=== PATIENT | female | born 1945 | race Caucasian/White ===

== ENCOUNTER → 2017-05-29 | Outpatient (CLI) | payer OTHER ==
[~2017-05-29] VITALS: Ht 154.9 cm; Wt 68.0 kg
[~2017-05-29] MED LIST: AMBIEN 5 MG TABL5 M1 PO; APAP650 PO; ASPIRIN81 M2 PO; ATORVASTATIN CA40 MG PO; CELLCEPT500 MG PO; COLACE100 MG PO; FLUTICASONE PRO16 GM NS; GLUCOTROL5 MG PO; MUPIROCIN22 GM TOP; NEURONTIN600 MG PO; NIFEDIPINE ER60 M1 PO; RESTASIS1 EACH OPHTHALMIC; ROBAXIN 750 MG750 M1 PO; TRAZODONE 150150 M1 PO; ZANTAC 150MG T150 MG PO
[2017-05-29 09:41] VITALS: BP 149/85
== END | disposition home or self-care (01) ==
LOC: PAIN 07:22
DX: M17.11 Unilateral primary osteoarthritis, right knee (principal); M47.27 Other spondylosis with radiculopathy, lumbosacral region; G89.29 Other chronic pain; I10 Essential (primary) hypertension; E11.9 Type 2 diabetes mellitus without complications; F32.89 Other specified depressive episodes; Z90.710 Acquired absence of both cervix and uterus; Z98.890 Other specified postprocedural states; Z79.82 Long term (current) use of aspirin; Z88.2 Allergy status to sulfonamides; Z88.8 Allergy status to other drugs, medicaments and biological substances; Z90.49 Acquired absence of other specified parts of digestive tract; Z79.899 Other long term (current) drug therapy

== ENCOUNTER → 2017-11-26 | Outpatient (CLI) | payer OTHER ==
[~2017-11-26] VITALS: Ht 157.5 cm; Wt 72.3 kg
[~2017-11-26] MED LIST changes: +CRESTOR10 MG PO; +HYDROCODON-ACE1 EAC8 PO; +PREDNISONE 5 MG5 M1 PO; +TRAMADOL 50 MG50 MG PO; +ZETIA10 MG PO
--- NOTE | ~2017-11-26 | HPC ---
[facility] [place] [address] PAIN MANAGEMENT CONSULTATION Name: RAMAN TRAN [facility] [id number] Admission: 11/26/17 Attend Phys: Gómez Baig DO Discharge: Date of : 49 Report #: [id number] THIS REPORT FOR: //name// CC: Gómez Leal DO DATE OF SERVICE: 11/26/2017 REFERRING PHYSICIAN: Ted Leal D.O. CHIEF COMPLAINT: Right knee pain. HISTORY OF PRESENT ILLNESS: As you know, the patient is a very pleasant 72-year-old female who returns today in followup visit having received a first in a series of Synvisc injections. Unfortunately, she received zero improvement in symptoms with the injection. She returns for possible repeat injection but also discussed other treatment options as the injection provided at last visit gave no improvement in symptoms. She had no complications with the procedure but had no improvement in overall pain. She is placing pain score today 2/10; exacerbated with walking, standing and lying down; improves with medications and repositioning. ALLERGIES: SULFA, CAFFEINE, GUAIFENESIN, NAPROXEN, CLINDAMYCIN, ADHESIVE TAPE and ERGOTAMINE. CURRENT MEDICATIONS: Nifedipine, glipizide, zolpidem, gabapentin, methocarbamol, ranitidine, trazodone, mycophenolate, fluticasone, cyclosporine, acetaminophen, lovastatin and prednisone. SOCIAL HISTORY: The patient denies tobacco, alcohol, IV or illicit drug use. She is retired and retired years ago. She is accompanied by her present in room today. IMAGING DATA: No new imaging available. PHYSICAL EXAMINATION: VITAL SIGNS: Blood pressure 127/66, pulse 76 and respiratory rate 16 and unlabored. The patient is 98% on room air. Height 5 feet 2 inches tall, weight 159.4 pounds and BMI calculated 29.1. GENERAL: Well-developed, well-nourished and well-hydrated 72-year-old female appearing stated age, pain is rated around 3/10. HEENT: Normocephalic and atraumatic. Pupils equal, round and reactive to light. EXTREMITIES: Show no clubbing, no cyanosis and no edema. MUSCULOSKELETAL: Active and passive range of motion, right knee is met with [facility] [address] [place] [address] PAIN MANAGEMENT CONSULTATION Name: RAMAN TRAN Room #: [facility]#: [id number] Admission: 11/26/17 Attend Phys: Gómez Baig DO Discharge: Date of : 49 Report #: [id number] increasing pain. This standing from seated position exacerbates knee pain as does ambulation. Drawer tests, both anterior and posterior negative. Lateral collateral and medial collateral ligaments appear to be intact. ASSESSMENT: 1. Right knee osteoarthritis. 2. Chronic right knee pain. 3. Chronic intractable pain. PLAN: 1. The patient returns today in followup visit where we discussed the lack of efficacy with the Synvisc injection. I would not recommend moving forward with further Synvisc injections given the 0% improvement in overall pain with the injection provided at last visit. I would recommend a more formalized evaluation through orthopedics and initiation of pain medication to help for pain control while we await the orthopedic eval. The patient was amenable. 2. The patient was given a referral to Orthopedic Surgery, review of symptoms and to discuss options for treatment for osteoarthritis of the right knee, progressively worsening. The patient was given a referral to initiate the consultation at her earliest convenience. 3. The patient was provided prescription of tramadol 50 mg dose 1 tab p.o. q. 6 hours p.r.n. for pain, I have given the patient #120, two refills, 3 months' worth of medication. The patient has had success with treatment of the right knee pain with tramadol. We will utilize this medication at this time with plans to come off the medication once Orthopedics has a chance to look for interventional treatment options including surgery. This is hopefully something that can resolve quickly and she can be off these medications is rapidly. 4. We will see the patient back in followup visit on an as needed basis for possible discussion of other treatment options. She is a very delightful person and we would love to see her back as needed. <ELECTRONICALLY SIGNED> By: Gómez Baig DO 12/10/17 [id number] Gómez Baig DO /nt
[2017-11-26 12:45] VITALS: BP 127/66
== END ==
LOC: PAIN 06:51
DX: M17.11 Unilateral primary osteoarthritis, right knee (principal); G89.29 Other chronic pain